=== PATIENT | male | born 1985 | race American Indian/Alaskan Native ===

== ENCOUNTER 2017-04-23 14:44 | Emergency (ER) | payer MEDICAID ==
[2017-04-23 15:00] VITALS: BP 204/117
== END 2017-04-23 23:37 | disposition left against medical advice (07) ==
LOC: ED 14:44
DX: M79.1 Myalgia (principal); K08.89 Other specified disorders of teeth and supporting structures; Z53.21 Procedure and treatment not carried out due to patient leaving prior to being seen by health care provider